=== PATIENT | male | born 1945 | race Caucasian/White ===

== ENCOUNTER 2021-11-10 09:05 | Emergency (ER) | payer OTHER ==
--- NOTE | 2021-11-10 09:38 | CT Report ---
PROCEDURE: HEAD WO INDICATIONS: fall/head injury TECHNIQUE: Noncontrast 4.5 mm thick angled axial sections acquired from the foramen magnum to the vertex. For r adiation dose reduction, the following was used: automated exposure control, adjustment of mA and/or kV according to patient size. COMPARISON: None. FINDINGS: Image quality: Excellent. CSF spaces: Basal cisterns are patent. No extra-axial fluid collections. Ventricles are normal in size and shape. Brain: No midline shift. No intracranial masses or hemorrhage. Lynn-white matter interface is norm al. Skull and face: Calvarium and visualized facial bones are intact, without suspicious lesions. Small right frontal scalp contusion. Sinuses: Visualized sinuses and mastoids are clear. IMPRESSION: No acute intracranial disease process. Reviewed by: Nuria Cheng MD, PhD on 11/10/2021 9:37 AM PDT Approved by: Nuria Cheng MD, PhD on 11/10/2021 9:37 AM PDT Station ID: [id number]
--- NOTE | 2021-11-10 09:41 | XRAY Report ---
PROCEDURE: Chest 1 View X-Ray INDICATIONS: fever/cough TECHNIQUE: One view of the chest was acquired. COMPARISON: None FINDINGS: Surgical changes and devices: None. Lungs and pleura: No pleural effusions or pneumothorax. Lungs are clear. Mediastinum: Mediastinal contours appear normal. Heart size is normal. Bones and chest wall: No suspicious bony lesions. Overlying soft tissues appear unremarkable. IMPRESSION: No acute cardiopulmonary disease process. Reviewed by: Nuria Cheng MD, PhD on 11/10/2021 9:40 AM PDT Approved by: Nuria Cheng MD, PhD on 11/10/2021 9:40 AM PDT Station ID: [id number]
[2021-11-10 10:00] LABS: BASOPHILS % (AUTO) 0.2 %; HCT - HEMATOCRIT 39.7 % (42.0-52.0); HGB - HEMOGLOBIN 13.3 g/dL (14.0-18.0); LYMPHOCYTES # (AUTO) 0.4 10^3/uL (1.5-3.5); LYMPHOCYTES % (AUTO) 8.9 %; MEAN CORPUSCULAR HEMOGLOBIN 31.9 pg (27.0-31.0); MEAN CORPUSCULAR HGB CONC 33.5 g/dL (32.0-36.0); MEAN CORPUSCULAR VOLUME 95.2 fL (80.0-94.0); MEAN PLATELET VOLUME 9.7 fL (7.4-11.4); MONOCYTES # (AUTO) 0.6 10^3/uL (0.0-1.0); NEUTROPHILS # (AUTO) 3.6 10^3/uL (1.5-6.6); NEUTROPHILS % (AUTO) 77.7 %; PLT - PLATELET COUNT 87 10^3/uL (130-450); RED BLOOD COUNT 4.17 10^6/uL (4.70-6.10); WHITE BLOOD COUNT 4.6 x10^3/uL (4.8-10.8)
[2021-11-10 10:10] LABS: ALBUMIN/GLOBULIN RATIO 1.1 (1.0-2.2); BILIRUBIN,TOTAL 1.1 mg/dL (0.2-1.0); CALCIUM 8.7 mg/dL (8.5-10.3); CREATININE 0.8 mg/dL (0.6-1.2); POTASSIUM 4.3 mmol/L (3.5-5.0); TOTAL PROTEIN 7.6 g/dL (6.7-8.2)
[2021-11-10 10:46] LABS: B. PARAPERTUSSIS- RESP PCR PAN NOT DETECTED; B. PERTUSSIS- RESP PCR PANEL NOT DETECTED; C. PNEUMONIAE- RESP PCR PANEL NOT DETECTED; CORONAVIRUS 229E-RESP PCR NOT DETECTED; CORONAVIRUS HKU1-RESP PCR NOT DETECTED; CORONAVIRUS NL63-RESP PCR NOT DETECTED; CORONAVIRUS OC43-RESP PCR NOT DETECTED; HUMAN METAPNEUMOVIRUS NOT DETECTED; INFLUENZA A- RESP PCR PANEL NOT DETECTED; INFLUENZA B - RESP PCR PANEL NOT DETECTED; M. PNEUMONIAE- RESP PCR PANEL NOT DETECTED; PARAINFLUENZA VIRUS 3 NOT DETECTED; PARAINFLUENZA VIRUS 4 NOT DETECTED; RHINOVIRUS/ENTEROVIRUS NOT DETECTED; RSV- RESP PCR PANEL NOT DETECTED; SARS-CoV-2 -RESP PCR PANEL NOT DETECTED
[2021-11-10 10:47] LABS: PARAINFLUENZA VIRUS 1 NOT DETECTED; PARAINFLUENZA VIRUS 2 DETECTED
[2021-11-10] MEDS ORDERED: ACETAMINOPHEN 325 MG TABLET PO STA (11:13)
--- NOTE | 2021-11-10 11:53 | ED Physician Documentation ---
History of Present Illness - Stated complaint Stated Complaint: FALL/CHEST CONGESTION - Chief complaint Chief Complaint: Trauma Hd/Nk - History obtained from History obtained from: Patient, Family - Additonal information Additional information: The patient comes to the emergency department with chief complaint of fevers, fatigue, not feeling well over the last 3 days. He is here for a family reunion from [facility], and his states that all the kids and a number of the adults have had the same "cold". The patient has had a mild cough but no shortness of breath. He states that he has just felt more tired and that when he got up to go to the bathroom this morning, he tripped over his feet and ended up falling, hitting his head. He denies any neck pain. No loss of consciousness. The patient is taking occasional Tylenol for his fever. No GI symptoms. No other complaints at this time. Review of Systems Ten Systems: 10 systems reviewed and negative Constitutional: reports: Fever, Fatigue Eyes: reports: Reviewed and negative Ears: reports: Reviewed and negative Nose: reports: Reviewed and negative Throat: reports: Reviewed and negative Cardiac: reports: Reviewed and negative Respiratory: reports: Cough GI: reports: Reviewed and negative : reports: Reviewed and negative Skin: reports: Reviewed and negative Musculoskeletal: reports: Reviewed and negative Neurologic: reports: Reviewed and negative Psychiatric: reports: Reviewed and negative Endocrine: reports: Reviewed and negative Immunocompromised: reports: Reviewed and negative PD PAST MEDICAL HISTORY - Allergies Allergies/Adverse Reactions: Allergies Allergy/AdvReac Type Severity Reaction Status Date / Time No Known Drug Allergies Allergy Verified 11/10/21 09:41 PD ED PE NORMAL - Vitals Vital signs reviewed: Yes - General General: Alert and oriented X 3, No acute distress, Well developed/nourished - HEENT HEENT: PERRL, EOMI, Moist mucous membranes, Other (Midline contusion of the forehead with 2 small abrasions; No bony deformity or step-off) - Neck Neck: Supple, no meningeal sign, No bony TTP - Cardiac Cardiac: RRR, No murmur - Respiratory Respiratory: No respiratory distress, Clear bilaterally - Abdomen Abdomen: Soft, Non tender, Non distended - Derm Derm: Warm and dry - Extremities Extremities: No deformity - Neuro Neuro: Alert and oriented X 3 - Psych Psych: Normal mood, Normal affect Results - Vitals Vitals: Vital Signs - 24 hr 11/10/21 11/10/21 09:34 11:11 Temperature 37.8 C 38.7 C H Heart Rate 75 77 Respiratory 14 24 Rate Blood Pressure 136/56 H 149/65 H O2 Saturation 97 98 Oxygen O2 Source Room air - Labs Labs: Laboratory Tests 11/10/21 11/10/21 11/10/21 09:41 09:52 09:52 WBC 4.6 L RBC 4.17 L Hgb 13.3 L Hct 39.7 L MCV 95.2 H MCH 31.9 H MCHC 33.5 RDW 13.0 Plt Count 87 L MPV 9.7 Neut # (Auto) 3.6 Lymph # (Auto) 0.4 L Colbert # (Auto) 0.6 Eos # (Auto) 0.0 Baso # (Auto) 0.0 Absolute Nucleated RBC 0.00 Nucleated RBC % 0.0 Sodium 135 Potassium 4.3 Chloride 97 L Carbon Dioxide 31 Anion Gap 7.0 BUN 23 H Creatinine 0.8 Estimated GFR (MDRD) 94 Glucose 76 Calcium 8.7 Total Bilirubin 1.1 H AST 46 H ALT 15 Alkaline Phosphatase 76 Total Protein 7.6 Albumin 4.0 Globulin 3.6 Albumin/Globulin Ratio 1.1 Lipase 42 Nasal Adenovirus (PCR) NOT DETECTED Nasal B. parapertussis DNA (PCR) NOT DETECTED Nasal Coronavir 229E PCR NOT DETECTED Nasal Coronavir HKU1 PCR NOT DETECTED Nasal Coronavir NL63 PCR NOT DETECTED Nasal Coronavir OC43 PCR NOT DETECTED Nasal Enterovir/Rhinovir PCR NOT DETECTED Nasal Influenza B PCR NOT DETECTED Nasal Influenza A PCR NOT DETECTED Nasal Parainfluen 1 PCR NOT DETECTED Nasal Parainfluen 2 PCR DETECTED A Nasal Parainfluen 3 PCR NOT DETECTED Nasal Parainfluen 4 PCR NOT DETECTED Nasal RSV (PCR) NOT DETECTED Nasal B.pertussis DNA PCR NOT DETECTED Nasal C.pneumoniae (PCR) NOT DETECTED Arnold Human Metapneumo PCR NOT DETECTED Nasal M.pneumoniae (PCR) NOT DETECTED Nasal SARS-CoV-2 (PCR) NOT DETECTED - Rads (name of study) Head CT Radiology: Final report received, EMP read indepedently, See rad report (Negative) Chest x-ray Radiology: Final report received, EMP read indepedently, See rad report (Negative) PD MEDICAL DECISION MAKING - ED course Complexity details: reviewed results, re-evaluated patient, considered differential, d/w patient, d/w family ED course: The patient was given IV fluids and Tylenol as he did develop a fever, and worked up with CT of the head, chest x-ray, and labs with respiratory PCR panel. Work-up was negative except for the PCR panel demonstrating nasal parainfluenza virus. I discussed with the patient and his that he should get plenty of rest and fluids, with Tylenol as needed for fevers. Departure - Departure Disposition: 01 Home, Self Care Clinical Impression: Parainfluenza virus infection Closed head injury Qualifiers: Encounter type: initial encounter Qualified Code(s): S09.90XA - Unspecified injury of head, initial encounter Condition: Stable Instructions: ED Viral Syndrome, ED Head Injury Closed Comments: Your labs, head CT, and chest x-ray look good. Your viral panel is positive for nasal parainfluenza virus, a flulike illness. This is probably what the rest of your family has had as well. It can sometimes present as just a cold, or it can be more of the flulike illness with fevers, body aches, and fatigue. The symptoms can last anywhere from several days to a couple of weeks. Please be sure that you rest plenty and drink 8 to 10 cups of water every day. You may take Tylenol 650 mg every 4 hours as needed for fever. Please follow-up with your primary doctor when you get home to [facility].
[2021-11-10 12:19] VITALS: BP 110/52
== END 2021-11-10 12:19 | disposition home or self-care (01) ==
LOC: ED 09:05
DX: S09.90XA Unspecified injury of head, initial encounter (principal); W01.10XA Fall on same level from slipping, tripping and stumbling with subsequent striking against unspecified object, initial encounter; Y93.89 Activity, other specified; Y92.003 Bedroom of unspecified non-institutional (private) residence as the place of occurrence of the external cause; B34.8 Other viral infections of unspecified site; Z20.822 Contact with and (suspected) exposure to COVID-19
CPT/HCPCS: 36415; 70450; 71045; 80053; 83690; 85025; 87633; 99284; A9270